=== PATIENT | male | born 1975 | race Caucasian/White ===

== ENCOUNTER 2019-10-31 07:04 | Emergency (ER) | payer BC, OTHER ==
[~2019-10-31] VITALS: Ht 167.6 cm; Wt 59.0 kg
[2019-10-31 07:06] VITALS: BP 149/97
[2019-10-31] MEDS ORDERED: NORCO 5-325 TA1 EAC2 PO (07:28)
[2019-10-31] MEDS ORDERED: CLINDAMYCIN HC150 MG PO (07:28)
== END 2019-10-31 07:35 | disposition home or self-care (01) ==
LOC: ER 07:04
DX: K04.7 Periapical abscess without sinus (principal); K02.9 Dental caries, unspecified; F17.210 Nicotine dependence, cigarettes, uncomplicated; Z88.1 Allergy status to other antibiotic agents; Z88.0 Allergy status to penicillin